=== PATIENT | female | born 1990 | race Caucasian/White ===

== ENCOUNTER 2023-01-11 15:11 | Outpatient (CLI) | payer OTHER, SELFPAY | END 2023-01-11 15:12 | disposition home or self-care (01) | LOC: NFLDREF 01-14 03:37 | PROVIDERS: PCP Family Medicine; Referring Provider Family Medicine; Visit Provider Family Medicine | DX: E78.1 Pure hyperglyceridemia (principal); J45.909 Unspecified asthma, uncomplicated | CPT/HCPCS: 80053; 80061 ==

== ENCOUNTER 2024-10-08 06:57 | Outpatient (CLI) | payer MEDICAID, SELFPAY ==
--- NOTE | 2024-10-08 07:15 | CRLHL7_ITS ---
For Patients: As a result of the Century Cures Act, medical imaging exams and procedure reports are released immediately into your electronic medical record. You may view this report before your referring provider. If you have questions, please contact your health care provider. OBSTETRICAL ULTRASOUND TRANSVAGINAL, 10/08/2024 CLINICAL INDICATION: Dating and viability. Surgery: None LMP: 08/06/2024; estimated, irregular cycles JEAN by LMP: 05/13/2025 Gestational age: 9 weeks 0 days Previous ultrasound: No TECHNIQUE: Real-time lamar-scale imaging of the fetus was performed transvaginal. Transvaginal imaging was performed for better visualization of the endometrium and ovaries. FINDINGS: CRL: 0.37 cm, 6 weeks 0 days; JEAN 06/03/2025 heart rate: 117 BPM Gestational sac: 1.9 cm Yolk sac: 4.3 mm, appears within normal limits Right ovary: Within normal limits; 3.1 x 2.5 x 2.6 cm, CL Left ovary: Within normal limits; 2.7 x 1.4 x 2.5 cm COMMENT: Ultrasound dates are 3 weeks less than LMP dates. IMPRESSION: 1. Single living intrauterine measuring 6 weeks 0 days with sonographic due date of 06/03/2025. 2. heart rate 117 beats per minute. NALDO JAVIER M.D. Diagnostic Radiologist [email or web address] Transcribed: 9:[address]/Dictated by: Naldo Javier MD @ 10/08/2024 8:54:00 AM (Electronically Signed)
== END 2024-10-08 06:58 | disposition home or self-care (01) ==
PROVIDERS: PCP Family Medicine; Visit Provider Advanced Practice Midwife
DX: O09.511 Supervision of elderly primigravida, first trimester (principal); Z3A.01 Less than 8 weeks gestation of pregnancy
CPT/HCPCS: 76817; 80306; 83021; 86592; 86703; 86704; 86706; 86762; 86787; 86803; 86850; 86900; 86901; 87086; 87340

== ENCOUNTER 2024-10-08 08:46 | Outpatient (CLI) | payer OTHER, SELFPAY | END 2024-10-08 08:47 | disposition home or self-care (01) | PROVIDERS: PCP Family Medicine; Visit Provider Advanced Practice Midwife | DX: Z34.91 Encounter for supervision of normal pregnancy, unspecified, first trimester (principal); Z3A.09 9 weeks gestation of pregnancy | CPT/HCPCS: 80306; 83020; 83021; 85660; 86592; 86703; 86704; 86706; 86762; 86787; 86803; 86850; 86900; 86901; 87086; 87340 ==

== ENCOUNTER 2024-10-22 07:06 | Outpatient (CLI) | payer MEDICAID, SELFPAY ==
--- NOTE | 2024-10-22 07:15 | CRLHL7_ITS ---
For Patients: As a result of the Century Cures Act, medical imaging exams and procedure reports are released immediately into your electronic medical record. You may view this report before your referring provider. If you have questions, please contact your health care provider. OB ULTRASOUND LESS THAN 14 WEEKS TRANSVAGINAL 10/22/2024 CLINICAL HISTORY: Dating discrepancy. TECHNIQUE: Grayscale and color Doppler ultrasound of the uterus and ovaries from a transabdominal and transvaginal approach. Transvaginal ultrasound of the pelvis was performed to better evaluate the genitourinary organs such as the ovaries and/or endometrium. FINDINGS: Imaging: Transvaginal. LMP: 08/06/2024. JEAN by LMP: 05/13/2025. Previous ultrasound: 10/08/2024. JEAN by US: 06/03/2025. GA: 8 weeks 0 days. CRL: 1.9 cm, 8 weeks 3 days. JEAN 05/31/2025. FHR: 161 bpm. GEST SAC: 3.3 cm, appears WNL. YOLK SAC: 4 mm, appears WNL. RIGHT OV: 3 x 2 x 2.3, WNL. CL. LEFT OV: 2.9 x 1.5 x 2.6, WNL. IMPRESSION: 1. Single living intrauterine measures 8 weeks 3 days and sonographic due date 05/31/2025. 2. Incidental corpus luteal cyst right ovary. Naldo Henderson M.D. Diagnostic Radiologist [email or web address] Transcribed: 10:37 am DW/Dictated by: Naldo Henderson MD @ 10/22/2024 8:56:00 AM (Electronically Signed)
== END 2024-10-22 07:07 | disposition home or self-care (01) ==
LOC: US 07:08
PROVIDERS: PCP Family Medicine; Visit Provider Advanced Practice Midwife
DX: O26.841 Uterine size-date discrepancy, first trimester (principal); O34.81 Maternal care for other abnormalities of pelvic organs, first trimester; N83.11 Corpus luteum cyst of right ovary; Z3A.08 8 weeks gestation of pregnancy
CPT/HCPCS: 76817

== ENCOUNTER 2024-12-21 14:35 | Outpatient (CLI) | payer BC, SELFPAY | END 2024-12-21 14:36 | disposition home or self-care (01) | LOC: NFLDREF 12-25 03:34 | PROVIDERS: PCP Family Medicine; Referring Provider Family Medicine; Visit Provider Advanced Practice Midwife | DX: O09.522 Supervision of elderly multigravida, second trimester (principal) | CPT/HCPCS: 81511 ==

== ENCOUNTER 2025-01-13 09:10 | Outpatient (CLI) | payer BC, SELFPAY | END 2025-01-13 09:11 | disposition home or self-care (01) | LOC: US 09:10 | PROVIDERS: PCP Family Medicine; Visit Provider Midwife | DX: O09.522 Supervision of elderly multigravida, second trimester (principal); Z3A.19 19 weeks gestation of pregnancy | CPT/HCPCS: 76811 ==

== ENCOUNTER 2025-01-20 14:53 | Outpatient (CLI) | payer BC, SELFPAY | END 2025-01-20 14:54 | disposition home or self-care (01) | PROVIDERS: PCP Family Medicine; Visit Provider Advanced Practice Midwife | DX: F12.90 Cannabis use, unspecified, uncomplicated (principal) | CPT/HCPCS: 80306 ==